=== PATIENT | male | born 2000 | race Caucasian/White ===

== ENCOUNTER 2021-09-27 18:03 | Emergency (ER) | payer MEDICAID, SELFPAY ==
[2021-09-27 18:03] VITALS: BP 136/84; PULSE 104; RESP 16; TEMP 35.8; O2SAT 97; BMI 61.0
[2021-09-27 21:39] VITALS: RESP 14
[2021-09-27] MEDS: Lidocaine 2% (20 ml mdv) 20 ML Vial INFILT (23:14)
[2021-09-27] MEDS: Bupivacaine Mpf 0.5% 30 ML VIAL INFILT (23:14)
--- NOTE | 2021-09-27 23:58 | EX.ED.DYSGE1 ---
HPI History of Present Illness Chief Complaint: Lower Extremity Injury Narrative Narrative: Patient reports he has had some redness swelling and now increased pain to his right great toe. He denies any trauma but states that he has had a ingrown toenail in the past and this feels similar nature. He states he is recently moved to the area and does not have a family doctor or a foot doctor who can take care of this so he comes the ER for evaluation. PFSH PFS Medical History no medical history Allergy/AdvReac Type Severity Reaction Status Date / Time No Known Allergies Allergy Verified 09/27/21 18:05 Social History Smoking Status: Unknown if ever smoked ROS ROS ED Constitutional Constitutional ED: Denies chills or fever(s) ENT ENT ED: Denies sore throat Cardiovascular Cardiovascular: Denies chest pain Respiratory/Chest Respiratory/Chest: Denies cough or dyspnea Gastrointestinal Gastrointestinal: Denies abdominal pain, diarrhea, nausea or vomiting Genitourinary Genitourinary ED: Denies dysuria Musculoskeletal Musculoskeletal: Reports other Details: Positive right toe/foot pain ; Denies myalgias Integumentary Denies rash Neurologic Neurologic: Denies headache(s) Hematologic/Lymphatic Hematologic/Lymphatic: Denies easy bleeding or easy bruising EXAM Physical Exam Const Vital Signs: 09/27/21 18:03 09/27/21 21:39 09/28/21 00:15 Temperature 96.5 F L 98.1 F Temperature Source Temporal Pulse Rate 104 H 96 Respiratory Rate 16 14 16 Blood Pressure 136/84 H 128/77 H Blood Pressure Mean 101 Pulse Ox 97 98 Oxygen Delivery Method Room Air Positive well nourished and well developed General Appearance ED: well developed Eyes PERRL and EOMs intact bilaterally Neck supple Resp normal respiratory effort and clear to auscultation bilaterally Cardio regular rate and regular rhythm Extremity Extremity Narrative: Right lower extremity is neurovascularly intact. Patient has a ingrown toenail to the right great toe with surrounding soft tissue erythema and swelling. No obvious signs of paronychia cellulitis abscess or lymphangitic streaking. Remainder the exam is normal Neuro oriented x3 and CN's II-XII intact bilaterally Sensorium / Orientation: alert Motor Exam: strength 5/5 throughout Psych mental status grossly normal Skin Skin Narrative: Soft tissue changes along the right great toe consistent with ingrown toenails documented above MDM MDM MDM Narrative Medical decision making narrative: Patient presented to the ER afebrile and his history and exam is consistent with an ingrown toenail. I feel the soft tissue changes to the toe related from irritation from the ingrown nail and not truly infected. Therefore the nail was removed as documented below and following this patient can be discharged. He was advised to follow-up with podiatry as this is the second time he had an ingrown toenail and he may need further care. Patient had the right great toe cleaned with chlorhexidine. It was anesthetized using 8 mL of 2% lidocaine without epinephrine in digital block. Following this reverses her technique was used to elevate the toenail off the nailbed. A third of the nail was then cut vertically and forceps were used to remove the nail from the cuticle. Following this silver nitrate was used to burn the edge of the nailbed to prevent regrowth of the nail. Patient tolerated procedure well without complication Discharge Plan Triage Chief Complaint: Lower Extremity Injury ED Provider: Liban Rae Dx/Rx/DC Orders Clinical Impression: Ingrowing right great toenail Instructions: ED Ingrown Toenail, Excised Stand Alone Forms: ED Work / School Excuse Primary Care Provider: Care Physician,No Primary Referrals: Yanet Thomas DPM [STAFF PHYSICIAN] - 1 Week if not improving Care Physician,No Primary [Primary Care Provider] - Disposition Disposition: Home, Self Care Discharge Date/Time: 09/28/21 00:16
[2021-09-28 00:15] VITALS: BP 128/77; PULSE 96; RESP 16; TEMP 36.7; O2SAT 98
== END 2021-09-28 00:16 | disposition home or self-care (01) ==
PROVIDERS: Emergency Provider Emergency Medicine; Visit Provider Emergency Medicine
DX: L60.0 Ingrowing nail (principal)
CPT/HCPCS: 11730; 99282